=== PATIENT | male | born 1945 | race Two or more races ===

== ENCOUNTER 2024-12-05 10:40 | Emergency (ER) | payer MEDICARE, SELFPAY ==
[2024-12-05 11:09] VITALS: BP 131/75; PULSE 88; RESP 19; TEMP 37.2; O2SAT 96; BMI 28.0
--- NOTE | 2024-12-05 11:29 | PD.EDUPEX ---
Upper Extremity Injury RME/HPI General Chief Complaint: Extremity Injury, Upper Stated Complaint: CUT ON LEFT FOREARM AT 2100 LAST NIGHT Time Seen by Provider: 12/05/24 11:10 Arrival date/time: 12/05/24 10:40 RME / HPI RME / HPI narrative: left arm skin tear, no head trauma no blood thinners. Patient tripped shoes. Hit his left arm. Wound was cleaned last night with rubbing alcohol. Also having difficulty hearing, no fevers chills nausea vomiting sore throat chest pain cough runny nose recent travel sick contacts. Patient's son is concerned that his dementia medications may be affecting his hearing Related Data Allergies Allergy/AdvReac Type Severity Reaction Status Date / Time No Known Allergies Allergy Verified 12/05/24 10:43 Course Quality Measures none Vital Signs Vital signs: Vital Signs Temperature 99.0 F 12/05/24 11:09 Pulse Rate 88 12/05/24 11:09 Respiratory Rate 19 12/05/24 11:09 Blood Pressure 131/75 H 12/05/24 11:09 Pulse Oximetry (%) 96 12/05/24 11:09 Oxygen Delivery Method Room Air 12/05/24 11:09 Extremity Injury MDM Narrative MDM Narrative:: Wound was irrigated at bedside, not actively bleeding, no tenderness palpation in his arm, no surrounding erythema fluctuance or crepitus. Patient declined x-ray at this time. Also declined getting a tetanus booster today. patient is neurovascularly intact. no signs of infection. will dc ot home with close return precautions and follow up with pcp Patient data External records reviewed:: [facility] previous records Clinical information provided by:: patient and family Social determinants that could affect healthcare access:: mental health Patient has the following chronic illnesses:: see judy How is presenting disease/condition affected by chronic disease/condition?: exacerbated by Evaluation data The following diagnostics were reviewed and interpreted by me:: other (specify) Lab and/or radiology exams considered but not ordered:: none Interpretation Summary: see above Medications / Prescriptions Medications or Prescriptions considered but not ordered:: none Medication administrations:: none Consultations Consultation(s) initiated? (list below): No Diagnosis Upper Extremity Injury Differential Diagnosis: other (fracture, soft tissue injury, skin tear, foreign body) Most likely diagnosis given after review of the tests above:: skin tear Admission Indicated Admission indicated?: not indicated Admission Request Was there a request for admission?: No Disposition Plan Disposition Plan: Discharge Discharge Attestation Discharge Attestation: The patient and all family members were given an opportunity to ask questions and understood the discharge instructions. Discharge instructions specifically effects, indications for sooner follow up or return to the emergency department, and the expected course of current diagnosis. Patient condition: Stable Discharge Plan Plan Patient Disposition: HOME (Self Care) Problem List Clinical Impression: Skin tear, Difficulty hearing Patient/Caregiver Discharge Instructions Additional Instructions: Por favor monitorear para signos de infeccion. Si desarolla pus, fiebre o cualquier otro sintoma de preocupacion por favor regresar inmediatamente. Hacer ferny con medico de cabecera dentro de 1-2 marley Print Language: Liberian Stand Alone Forms: Naya Award Info., Patient Portal Info Letter
== END 2024-12-05 11:35 | disposition home or self-care (01) ==
LOC: SERX 11:31
PROVIDERS: Emergency Provider Emergency Medicine
DX: S51.812A Laceration without foreign body of left forearm, initial encounter (principal); W01.10XA Fall on same level from slipping, tripping and stumbling with subsequent striking against unspecified object, initial encounter; H91.90 Unspecified hearing loss, unspecified ear
CPT/HCPCS: 99281